=== PATIENT | male | born 1995 | race Caucasian/White ===

== ENCOUNTER 2019-06-14 17:08 | Emergency (ER) | payer MEDICAID ==
[~2019-06-14] VITALS: Wt 99.0 kg
[~2019-06-14 17:08] MED LIST: BACI28.34 TOP; CEPH-443 PO; IBUP-1542 PO; SULF1TAB31 PO
[2019-06-14 17:17] VITALS: BP 139/84; PULSE 111; RESP 18
== END 2019-06-14 18:11 | disposition home or self-care (01) ==
LOC: E/R 17:08
DX: L03.032 Cellulitis of left toe (principal)
CPT/HCPCS: 99283